=== PATIENT | female | born 1975 | race Hispanic/Latino ===

== ENCOUNTER 2017-12-08 23:36 | Emergency (ER) | payer OTHER ==
[2017-12-08 23:36] VITALS: BMI 27.1
[2017-12-08 23:47] VITALS: O2SAT 99
--- NOTE | 2017-12-09 00:08 | C.PDOC ---
History Of Present Illness 42 year old female presents to the ED for evaluation of multiple abrasions after tripping and falling today prior to arrival. Patient admits to drinking alcohol today, states she does not remember whether she passed out or not. Patient reports she remembers falling, and her tetanus is up to date. Patient denies nausea, vomit, weakness, visual changes. - HPI Time Seen by Provider: 12/09/17 00:07 Chief Complaint (Nursing): Trauma History Per: Patient History/Exam Limitations: no limitations Onset/Duration Of Symptoms: Hrs Injury Occurred (Timing): Just Before Arrival Location Of Injury: Right: Head (forehead), Anterior: Face (right eye, nasal bridge) Recent travel outside of the [place]: No Additional History Per: Patient Past Medical History Reviewed: Historical Data, Nursing Documentation, Vital Signs Vital Signs: Last Vital Signs Temp 97.4 F L 12/08/17 23:40 Pulse 80 12/08/17 23:40 Resp 20 12/08/17 23:40 BP 114/77 12/08/17 23:40 Pulse Ox 99 12/09/17 02:29 - Medical History PMH: Anxiety, Asthma, Depression Denies: Chronic Kidney Disease Surgical History: No Surg Hx - [facility] Procedures INJECT/INFUSE NEC (08/01/07) Family History: States: Unknown Family Hx - Social History Hx Alcohol Use: Yes Hx Substance Use: No - Immunization History Hx Tetanus Toxoid Vaccination: No Hx Influenza Vaccination: Yes Hx Pneumococcal Vaccination: Yes Review Of Systems Eyes: Negative for: Vision Change ENT: Positive for: Nose Pain Cardiovascular: Negative for: Chest Pain Respiratory: Negative for: Cough, Shortness of Breath Gastrointestinal: Negative for: Nausea, Vomiting Skin: Positive for: Bruising Neurological: Negative for: Weakness, Numbness, Headache Physical Exam - Physical Exam Appears: Non-toxic, No Acute Distress Skin: Warm, Dry Head: Normacephalic, Abrasion (right forehead, under right eye) Eye(s): bilateral: Normal Inspection, PERRL, EOMI Ear(s): Bilateral: Normal Nose: No Discharge, No Septal Hematoma, Other (abrasion nasal bridge ) Throat: Normal, No Erythema, No Exudate Neck: Normal ROM, No Midline Cervical Tenderness, No Step Off Deformity, Supple Chest: Symmetrical Cardiovascular: Rhythm Regular, No Murmur Respiratory: No Rales, No Rhonchi, No Wheezing Gastrointestinal/Abdominal: Soft, No Tenderness, No Guarding, No Rebound Extremity: Normal ROM, No Tenderness, No Swelling Neurological/Psych: Oriented x3, Normal Motor, Normal Sensation Gait: Steady ED Course And Treatment O2 Sat by Pulse Oximetry: 99 (On RA) Pulse Ox Interpretation: Normal - CT Scan/US CT head Other Rad Studies (CT/US): Read By Radiologist, Radiology Report Reviewed CT/US Interpretation: EXAM: CT Head Without Intravenous Contrast. EXAM DATE/ TIME: 12/09/2017 12:22 AM. CLINICAL HISTORY: 42 years old, female; Injury or trauma; Fall; Initial encounter; Abrasion; Forehead. TECHNIQUE: Axial computed tomography images of the head/brain without intravenous contrast. All CT scans at. this facility use one or more dose reduction techniques, viz.: automated exposure control; ma/kV. adjustment per patient size (including targeted exams where dose is matched to indication; i.e. head);. or iterative reconstruction technique. Coronal and sagittal reformatted images were created and. reviewed. COMPARISON: No relevant prior studies available. FINDINGS: LIMITATIONS: Mild streak/motion artifact. BRAIN: No significant acute abnormality identified. No acute hemorrhage seen within the brain. No. acute extra-axial fluid collections visualized. No evidence of significant mass effect within the brain. VENTRICLES: No evidence of significant hydrocephalus. BONES/JOINTS: No acute fractures or other acute bony abnormality noted. SOFT TISSUES: Soft tissue swelling in the right frontal scalp. SINUSES: Visualized paranasal sinuses appear clear. MASTOID AIR CELLS: Mastoid air cells appear clear. IMPRESSION: - No evidence of acute intracranial injury or fractures. - See above for remaining findings. CT orbitals Other Rad Studies (CT/US): Read By Radiologist, Radiology Report Reviewed CT/US Interpretation: EXAM: CT Orbits Without Intravenous Contrast. EXAM DATE/ TIME: 12/09/2017 12:22 AM. CLINICAL HISTORY: 42 years old, female; Injury or trauma; Fall; Initial encounter; Abrasion; Cheek bone; Bilateral;. Additional info: Fall, ETOH. TECHNIQUE: Axial computed tomography images of the orbits without intravenous contrast. All CT scans at this. facility use one or more dose reduction techniques, viz.: automated exposure control; ma/kV. adjustment per patient size (including targeted exams where dose is matched to indication; i.e. head);. or iterative reconstruction technique. COMPARISON: No relevant prior studies available. FINDINGS: ORBITS: Intraorbital soft tissues appear grossly intact. No evidence of significant orbital. emphysema. SINUSES: Mucous retention cysts and mucosal thickening in the maxillary sinuses bilaterally,. greater on the left. No evidence of sinus fluid levels. BONES/ JOINTS: Bilateral nasal bone fractures, minimally displaced and suspected to be acute, as. there is overlying soft tissue swelling . Recommend clinical correlation. No additional acute fractures. seen. SOFT TISSUES: See above. No evidence of soft tissue hematoma. DENTAL: Lucency surrounding the root of a right lower tooth, image 54/series 54, suspicious for a. periodontal abscess. There is mild sclerosis of the adjacent mandible, with no evidence of aggressive. periostitis or cortical breakthrough. IMPRESSION: - Bilateral nasal bone fractures.- Findings suspicious for a periodontal abscess involving a right lower tooth. See above. - See above for remaining findings. Thank you for allowing us to participate in the care of your patient. Dictated and Authenticated by: Cecilia Davis MD. 12/09/2017 2:01 AM Eastern Time ([place] & [place]) Progress Note: Plan: - CT head. - CT orbits Reevaluation Time: 05:04 Reassessment Condition: Improved Disposition Counseled Patient/Family Regarding: Studies Performed, Diagnosis, Need For Followup - Disposition Referrals: Marilou Elise DMD [Staff Provider] - Disposition: HOME/ ROUTINE Disposition Time: 00:08 Condition: FAIR Instructions: Nose Fracture (DC), Skin Abrasions (DC) Forms: [facility] (Urdu) - Clinical Impression Clinical Impression: Fall, Nasal bone fractures, Multiple abrasions - Scribe Statement The provider has reviewed the documentation as recorded by the Scribe Christopher Johnson All medical record entries made by the Scribe were at my direction and personally dictated by me. I have reviewed the chart and agree that the record accurately reflects my personal performance of the history, physical exam, medical decision making, and the department course for this patient. I have also personally directed, reviewed, and agree with the discharge instructions and disposition.
[2017-12-09 06:32] VITALS: BP 110/70; PULSE 70; RESP 14; TEMP 97.5
--- NOTE | 2017-12-09 10:25 | CT ---
PROCEDURE: CT HEAD WITHOUT CONTRAST. HISTORY: Status post fall COMPARISON: Correlation made with concurrent CT scan maxillofacial skeleton TECHNIQUE: Contiguous helical/ transaxial computed tomography images were obtained through the head/brain without intravenous contrast. Radiation dose: Total exam DLP = 733.52 mGy-cm. This CT exam was performed using one or more of the following dose reduction techniques: Automated exposure control, adjustment of the mA and/or kV according to patient size, and/or use of iterative reconstruction technique. FINDINGS: HEMORRHAGE: No acute parenchymal, subarachnoid nor extra-axial hemorrhage. BRAIN: No mass effect or edema. No atrophy or chronic microvascular ischemic changes. VENTRICLES: No obstructive hydrocephalus. CALVARIUM: No acute calvarial fractures. Mild right and mid frontal scalp swelling PARANASAL SINUSES: Frontal sinuses are hypoplastic. Remaining visualized paranasal sinuses appear well-developed. The minor mucosal thickening within the ethmoid air complex. Mucous retention cysts and/or foci of polypoid like mucosal thickening left maxillary antrum seen on concurrent CT scan maxillofacial skeleton not visualized on this study . Bilateral nasal bone fractures seen on concurrent CT scan maxillofacial skeleton not appreciated on this exam. MASTOID AIR CELLS: Unremarkable as visualized. No inflammatory changes. OTHER FINDINGS: None. IMPRESSION: No acute intracranial hemorrhage. Bilateral nasal bone fractures not visualized on this study. Please refer to concurrent CT scan of the maxillofacial skeleton Mild right and mid frontal scalp swelling.
--- NOTE | 2017-12-09 10:37 | CT ---
PROCEDURE: CT scan of the orbits dated 12/09/2017 HISTORY: Status post fall. ETOH. COMPARISON: None available. Correlation made with concurrent CT scan brain TECHNIQUE: Contiguous helical/transaxial CT images of the orbits were obtained. Coronal and sagittal reformats were generated. Radiation dose: Total exam DLP = 1060.55 mGy-cm. This CT exam was performed using one or more of the following dose reduction techniques: Automated exposure control, adjustment of the mA and/or kV according to patient size, and/or use of iterative reconstruction technique. FINDINGS: Findings: The current study reveals bilateral nasal bone fractures with overlying soft tissue swelling. No other definitive of maxillofacial skeletal fractures are identified. Bony orbits appear intact. The globes intact and lenses appropriately located. There are no retrobulbar hemorrhages or collections. . Optic nerves and extraocular musculature unremarkable. The frontal sinuses are hypoplastic. The remaining visualized paranasal sinuses well-developed. Moderate sized mucous retention cysts present within both maxillary antra. There is mild mucosal thickening seen in the floor right maxillary antrum. Mild mucosal thickening within the ethmoid air complex and minimal mucosal thickening left chamber sphenoid sinus. There is slight leftward deviation of the nasal septum. There is also a left-sided dalton bullosa. Re- demonstrated there is mild right and mid frontal scalp swelling. OTHER: There appears to be poor dentition with scattered dental caries. In addition, there also appears to be a small radicular cyst surrounding right mandibular canine tooth IMPRESSION: Bilateral nasal bone fractures with overlying soft tissue swelling. Mucoperiosteal inflammatory changes within the aforementioned paranasal sinuses. Poor dentition as above. Dental consultation recommended
== END 2017-12-09 06:31 | disposition home or self-care (01) ==
LOC: C.ER 23:36
DX: S02.2XXA Fracture of nasal bones, initial encounter for closed fracture (principal); S00.81XA Abrasion of other part of head, initial encounter; S00.31XA Abrasion of nose, initial encounter; W01.0XXA Fall on same level from slipping, tripping and stumbling without subsequent striking against object, initial encounter; Y92.89 Other specified places as the place of occurrence of the external cause